=== PATIENT | female | born 1965 | race Two or more races ===

== ENCOUNTER 2016-11-13 15:33 | Emergency (ER) | payer OTHER ==
[~2016-11-13] VITALS: Ht 162.6 cm; Wt 64.4 kg
[2016-11-13 15:34] VITALS: BP 121/79
[2016-11-13 16:49] LABS: ASPARTATE AMINO TRANSFERASE 20 U/L (15-37); BLOOD UREA NITROGEN 13 mg/dL (7-18)
== END 2016-11-13 18:06 | disposition home or self-care (01) ==
LOC: ED 17:00
DX: I87.2 Venous insufficiency (chronic) (peripheral) (principal)
CPT/HCPCS: 36415; 80053; 81001; 93005; 93970